=== PATIENT | male | born 1955 ===

== ENCOUNTER 2023-12-16 08:09 | Day surgery (SDC) | payer MEDICARE ==
[2023-12-16] MEDS ORDERED: Sodium Chloride 0.9% 10 ML Syringe FLUSH PRN (08:30)
[2023-12-16] MEDS ORDERED: Ondansetron 4 MG/2 ML SDV IVPUSH PRN (08:30)
[2023-12-16] MEDS ORDERED: Povidone-Iodine 5% Sterile Ophth Soln 30 ML Bottle EYERT ONE ×2 (08:30→09:18)
[2023-12-16] MEDS ORDERED: Proparacaine 0.5% Ophth Soln 15 ML Bottle EYERT ONE ×2 (08:30→09:18)
[2023-12-16] MEDS ORDERED: Acetaminophen 325 MG Tab PO PRN (08:30)
[2023-12-16] MEDS ORDERED: Tropicamide 1% Ophth Soln 15 ML Bottle EYERT ONE (08:30)
[2023-12-16] MEDS ORDERED: Moxifloxacin 0.5% Ophth Soln 3 ML Bottle EYERT ONE (08:30)
[2023-12-16] MEDS ORDERED: Acetaminophen/Codeine 300-30 MG Tab PO PRN (08:30)
[2023-12-16] MEDS ORDERED: Phenylephrine 10% Ophth Soln 5 ML Bot EYERT PRN (08:30)
[2023-12-16] MEDS ORDERED: Cataract Ophth Solution EYERT ONE (08:30)
[2023-12-16] MEDS ORDERED: Timolol Maleate 0.5% Ophth Soln 5 ML Bottle EYERT ONE (08:30)
[2023-12-16] MEDS ORDERED: Diclofenac Sodium 0.1% Ophth Soln 5 ML Bottle EYERT ONE (09:18)
[2023-12-16] MEDS ORDERED: Dexamethasone/Tobramycin 0.1-0.3% Ophth Oint 3.5 GM Tube EYERT ONE (09:19)
[2023-12-16] MEDS ORDERED: Lidocaine 1% 30 ML SDV INFILT ONE (09:20)
[2023-12-16] MEDS ORDERED: Vancomycin 500 MG SDV EYERT ONE (09:20)
== END 2023-12-16 10:15 | disposition home or self-care (01) ==
LOC: DL.SDS 08:09
PROVIDERS: ATTEND Ophthalmology
DX: H25.811 Combined forms of age-related cataract, right eye (principal); I12.9 Hypertensive chronic kidney disease with stage 1 through stage 4 chronic kidney disease, or unspecified chronic kidney disease; N18.31 Chronic kidney disease, stage 3a; J44.89 Other specified chronic obstructive pulmonary disease; E78.5 Hyperlipidemia, unspecified; K21.9 Gastro-esophageal reflux disease without esophagitis; I77.810 Thoracic aortic ectasia; G47.33 Obstructive sleep apnea (adult) (pediatric); Z87.891 Personal history of nicotine dependence; Z79.899 Other long term (current) drug therapy; Z88.5 Allergy status to narcotic agent; Z88.8 Allergy status to other drugs, medicaments and biological substances
CPT/HCPCS: A9270-GY; J3370; J3490; V2632

== ENCOUNTER 2023-12-30 07:24 | Day surgery (SDC) | payer MEDICARE ==
[2023-12-30] MEDS ORDERED: Acetaminophen/Codeine 300-30 MG Tab PO PRN (07:30)
[2023-12-30] MEDS ORDERED: Ondansetron 4 MG/2 ML SDV IVPUSH PRN (07:30)
[2023-12-30] MEDS ORDERED: Acetaminophen 325 MG Tab PO PRN (07:30)
[2023-12-30] MEDS: Proparacaine 0.5% Ophth Soln 15 ML Bottle EYELF ONE ×2 (07:51→08:56)
[2023-12-30] MEDS: Moxifloxacin 0.5% Ophth Soln 3 ML Bottle EYELF ONE (07:52)
[2023-12-30] MEDS: Povidone-Iodine 5% Sterile Ophth Soln 30 ML Bottle EYELF ONE ×2 (07:53→08:57)
[2023-12-30] MEDS: Phenylephrine 10% Ophth Soln 5 ML Bot EYELF ONE (07:53)
[2023-12-30] MEDS: Tropicamide 1% Ophth Soln 15 ML Bottle EYELF ONE (07:54)
[2023-12-30] MEDS: Timolol Maleate 0.5% Ophth Soln 5 ML Bottle EYELF ONE (07:55)
[2023-12-30] MEDS: Cataract Ophth Solution EYELF ONE (07:57)
[2023-12-30] MEDS: Sodium Chloride 0.9% 10 ML Syringe FLUSH PRN (08:03)
[2023-12-30] MEDS: Diclofenac Sodium 0.1% Ophth Soln 5 ML Bottle EYELF ONE (08:58)
[2023-12-30] MEDS: Apraclonidine 0.5% Ophth Soln 5 ML Bot EYELF ONE (08:58)
[2023-12-30] MEDS: Tobramycin 0.3% Ophth Oint 3.5 GM Tube EYELF ONE (08:58)
[2023-12-30] MEDS: Lidocaine 1% 30 ML SDV INJECT ONE (08:59)
[2023-12-30] MEDS: Vancomycin 500 MG SDV EYELF ONE (09:00)
== END 2023-12-30 09:42 | disposition home or self-care (01) ==
LOC: DL.SDS 07:24
PROVIDERS: ATTEND Ophthalmology
DX: H25.812 Combined forms of age-related cataract, left eye (principal); K21.9 Gastro-esophageal reflux disease without esophagitis; E78.5 Hyperlipidemia, unspecified; G47.33 Obstructive sleep apnea (adult) (pediatric); I10 Essential (primary) hypertension; J44.89 Other specified chronic obstructive pulmonary disease; Z98.890 Other specified postprocedural states; Z87.891 Personal history of nicotine dependence; Z79.899 Other long term (current) drug therapy; Z88.5 Allergy status to narcotic agent; Z88.8 Allergy status to other drugs, medicaments and biological substances
CPT/HCPCS: 66982; A9270; J3370; V2632; J3490